=== PATIENT | female | born 1935 | race Caucasian/White ===

== ENCOUNTER 2017-01-27 11:26 | Day surgery (SDC) | payer OTHER ==
[~2017-01-27] VITALS: Ht 160 cm; Wt 71.2 kg
[2017-01-27 12:06] VITALS: Ht 160 cm; Wt 71.2 kg
[2017-01-27 12:15] VITALS: BP 208/85; PULSE 71; RESP 16
[2017-01-27] MEDS ORDERED: CITA10SO GTB (12:31)
[2017-01-27] MEDS ORDERED: ASPI-535 PO (12:31)
[2017-01-27] MEDS ORDERED: OMEP40CA6 PO (12:31)
[2017-01-27] MEDS ORDERED: CILO100T PO (12:31)
[2017-01-27] MEDS ORDERED: ATOR10TA65 PO (12:31)
[2017-01-27] MEDS ORDERED: CARV12.598 PO (12:31)
[2017-01-27] MEDS ORDERED: LOSA100T7 PO (12:31)
[2017-01-27] MEDS ORDERED: CEFAZOLIN 1 GM/50 ML (PMX) 0 ML IVPB ONE (12:59)
[2017-01-27] MEDS ORDERED: CEFAZOLIN 2 GM/50 ML (PMX) 50 ML IVPB ONE (13:00)
[2017-01-27] MEDS ORDERED: LIDOCAINE 4% SOLUTION 50 ML BTL ONE (13:02)
[2017-01-27] MEDS ORDERED: LABETALOL HCL 20MG INJ ONE (13:19)
[2017-01-27] MEDS ORDERED: MIDAZOLAM 1 MG/ML 2 ML INJ ONE ×2 (13:48)
[2017-01-27] MEDS ORDERED: FENTAnyl 50 MCG/ML VIAL ONE (13:48)
--- NOTE | 2017-01-27 13:59 | OPPN ---
Date/Time of Note Date/Time of Note DATE: 01/27/17 TIME: 13:56 Recommend following up as outpatient in 2-3 weeks Operative Report Preoperative Diagnosis Screening colonoscopy abdominal pain Postoperative Diagnosis Colonoscopy with collection of material for lab to rule out parasite versus seeds diverticulosis Operation/Procedure Performed Colonoscopy also collection of material from colon with killian basket Surgeon see signature line visitor services information assistant None Anesthesia: moderate sedation (Versed 1 mg fentanyl 25 mcg total time for moderate sedation 30 minutes) Estimated blood loss: none Transfusion Required none Specimen Selected material what looked like seed versus parasites cecum to histopathology bacteriology to rule out any parasites or seeds Grafts/Implants none Complications none ANTHONY GOTTI MD Jan 27, 2017 13:59
[2017-01-27] MEDS ORDERED: NITROGLYCERIN (SL) 0.4 MG TAB SL ONE (14:00)
[2017-01-27 14:16] VITALS: BP 189/88; RESP 14
--- NOTE | 2017-01-27 14:23 | OPPN ---
Date/Time of Note Date/Time of Note DATE: 01/27/17 TIME: 14:21 Operative Report Preoperative Diagnosis Dysphagia Postoperative Diagnosis Small hiatus hernia otherwise normal Operation/Procedure Performed EGD random gastric Surgeon see signature line legal executive assistant None Anesthesia: moderate sedation (3 mg Versed 50 mcg fentanyl total duration of moderate sedation 30 minutes) Estimated blood loss: none Transfusion Required none Specimen Random gastric biopsy Grafts/Implants none Complications none ANTHONY GOTTI MD Jan 27, 2017 14:23
--- NOTE | 2017-01-28 02:54 | GILP ---
DATE OF PROCEDURE: PREOPERATIVE DIAGNOSIS: Dysphagia. PROCEDURE DONE: Esophagogastroduodenoscopy and biopsy. POSTOPERATIVE DIAGNOSES: 1. Small hiatus hernia. 2. Irregular Z-line. No strictures noted. DESCRIPTION OF PROCEDURE: The patient was put in left lateral decubitus after obtaining informed co nsent. Posterior pharynx anesthetized with 4% Xylocaine. Monitored oximetry, EKG and blood pressur e. She received 2 mg of IV Versed, 50 mcg of fentanyl. Then advanced the Olympus video upper endos cope into the esophagus, stomach and duodenum. The duodenum is essentially normal. Stomach: There is mild gastritis in the antrum. Fundus and body normal, even by retroflexion, but random biopsy d one to rule out H. pylori. The esophagus in its entire length is essentially normal except for hiat us hernia. Z-line was somewhat irregular. Postop, patient had no complication. PLAN: Will be to observe and await for biopsy report, followup in 2 weeks in the office. Dictated By: ANTHONY CABALLERO Conf#: [id number] DID#: [id number] CC: CHASTITY LACY;*EndCC*
--- NOTE | 2017-01-28 03:04 | GILP ---
DATE OF PROCEDURE: PREOPERATIVE DIAGNOSIS: History of abdominal pain. PROCEDURE DONE: Colonoscopy, removal of seeds versus parasites from the colon. POSTOPERATIVE DIAGNOSIS: Diverticulosis, multiple seeds versus parasitic infection, cannot rule out so this material was picked up by a Franklin basket. DESCRIPTION OF PROCEDURE: The patient was put in left lateral decubitus after EGD, further sedation was done with total of 125 mcg of fentanyl, 1 mg of Versed given. Rectal exam done, which was norm al. Advanced Olympus video colonoscope all the way to cecum. Diverticulosis, few of them noted in the l eft colon, otherwise unremarkable. In the appendix area there was peculiar looking seeds and could not differentiate some of them from parasites so this was suctioned and also a Franklin basket was used to fruit or nut picker some of this material to send it for pathology. Examination on the way out was essential ly normal except for diverticulosis entire colon. PLAN: Will be to await for the pathology report and follow up as outpatient. Dictated By: ANTHONY CABALLERO Conf#: [id number] DID#: [id number] CC: Alec Chaudhari;*EndCC*
== END 2017-01-27 15:08 | disposition home or self-care (01) ==
LOC: GIL 11:26
PROVIDERS: ATTEND Internal Medicine
DX: K44.9 Diaphragmatic hernia without obstruction or gangrene (principal); K57.90 Diverticulosis of intestine, part unspecified, without perforation or abscess without bleeding; I10 Essential (primary) hypertension
CPT/HCPCS: 43239; 45378; J0690; J2250; J3010